=== PATIENT | female | born 1960 | race Two or more races ===

== ENCOUNTER → 2024-08-04 | Outpatient (CLI) | payer BC, SELFPAY ==
--- NOTE | 2024-08-04 15:07 | XR_ITS ---
Examination: Retroperitoneal ultrasound, complete Technique: Multiple high resolution grayscale images of the retroperitoneum obtained, including kidneys and bladder. Exam date and time:August 04, 2024 1515 hrs. Indications: Painful urination hematuria beginning one week ago, diagnosis right renal colic Findings: Right kidney 11.3 x 3.9 x 6.1 minute cortex 1.6 cm 11 mm midpole cyst Left kidney 11.3 x 5.8 x 6.0 cm cortex 1.6 cm No renal calculi or hydronephrosis No bladder mass or bladder calculi Bladder prevoid volume 257 cc postvoid volume 11 cc Impression: No renal calculi or hydronephrosis
== END | disposition home or self-care (01) ==
LOC: SDIM 14:46
PROVIDERS: PCP Internal Medicine; Referring Provider Internal Medicine; Visit Provider Internal Medicine
DX: N23 Unspecified renal colic (principal)
CPT/HCPCS: 76770

== ENCOUNTER → 2024-11-22 | Outpatient (CLI) | payer BC, SELFPAY ==
[2024-11-22 09:04] LABS: Albumin, Serum 4.2 gm/dL (3.4-4.8); Anion Gap 8 (7-16); BUN/Creatinine Ratio 11 Ratio (12-20); Blood Urea Nitrogen 9 mg/dL (9-23); Calcium 9.1 mg/dL (8.3-10.6); Calcium (Corrected) 9.1 mg/dL (8.5-10.1); Carbon Dioxide 28.1 mMol/L (20.0-31.0); Chloride 107 mMol/L (98-107); Creatinine (Component) 0.8 mg/dL (0.6-1.3); Glucose 113 mg/dL (74-106); Osmolality,Calculated 284 (275-295); Phosphorous 3.7 mg/dL (2.4-5.1); Sodium 143 mMol/L (136-145); Thyroid Stimulating Hormone 5.85 uIU/mL (0.55-4.78); eGFR > 60 See Note
== END | disposition home or self-care (01) ==
PROVIDERS: PCP Internal Medicine; Referring Provider Internal Medicine; Visit Provider Internal Medicine
DX: I10 Essential (primary) hypertension (principal); E03.9 Hypothyroidism, unspecified
CPT/HCPCS: 36415; 80069; 84443

== ENCOUNTER 2025-02-23 06:50 | Day surgery (SDC) | payer BC, SELFPAY ==
--- NOTE | 2025-02-20 11:57 | EKG_ITS ---
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
[2025-02-20 12:03] VITALS: BMI 39.5
[2025-02-20 12:46] LABS: Basophils # (Auto) 0.0 Thou/mm3 (0.0-0.2); Basophils % (Auto) 0 % (0-2.5); Eosinophils # (Auto) 0.4 Thou/mm3 (0.0-0.5); Eosinophils % (Auto) 4 % (0-10); Hematocrit 44.9 % (36.0-46.0); Hemoglobin 15.1 g/dL (12.0-16.0); Immature Granulocytes Auto 0.04 Thou/mm3 (0.00-0.00); Lymphocytes # (Auto) 3.0 Thou/mm3 (1.0-4.8); Lymphocytes % (Auto) 28 % (10-50); Mean Corpuscular HGB Conc 33.6 g/dl (31.0-37.0); Mean Corpuscular Hemoglobin 29.6 pg (25.0-35.0); Mean Corpuscular Volume 88 fL (80-100); Monocytes # (Auto) 0.7 Thou/mm3 (0.0-0.8); Monocytes % (Auto) 7 % (0-12); Neutrophils # (Auto) 6.5 Thou/mm3 (1.8-7.7); Neutrophils % (Auto) 61 % (37-80); Nucleated Red Blood Cell # 0.00 Thou/mm3 (0.00-0.00); Nucleated Red Blood Cell % 0 /100 WBC (0); Platelet Count 243 Thou/mm3 (140-440); RDW Standard Deviation 46.0 fL (36.4-46.3); Red Blood Count 5.10 Miln/mm3 (4.00-5.20); White Blood Count 10.6 Thou/mm3 (3.6-11.0)
[2025-02-20 13:08] LABS: Alanine Aminotransferase 14 U/L (10-49); Albumin, Serum 4.4 gm/dL (3.4-4.8); Albumin/Globulin Ratio 1.8 (1.2-2.2); Alkaline Phosphatase 82 U/L (46-116); Anion Gap 9 (7-16); Aspartate Amino Transferase 18 U/L (0-34); BUN/Creatinine Ratio 13 Ratio (12-20); Bilirubin,Total 0.8 mg/dL (0.3-1.2); Blood Urea Nitrogen 9 mg/dL (9-23); Calcium 9.6 mg/dL (8.3-10.6); Calcium (Corrected) 9.6 mg/dL (8.5-10.1); Carbon Dioxide 25.4 mMol/L (20.0-31.0); Chloride 109 mMol/L (98-107); Creatinine (Component) 0.7 mg/dL (0.6-1.3); Estimated Creatinine Clearance 101.7 mL/min (>60); Globulin 2.4 gm/dL (2.3-3.5); Glucose 104 mg/dL (74-106); Osmolality,Calculated 283 (275-295); Potassium 3.7 mMol/L (3.4-5.1); Sodium 143 mMol/L (136-145); Total Protein 6.8 gm/dL (5.7-8.2); eGFR > 60 See Note
[2025-02-23] VITALS (7 sets, daily range): BP systolic 103–145; BP diastolic 60–86; PULSE 69–84; RESP 16–20; TEMP 36.3–36.6; O2SAT 95–98; BMI 39.3
--- NOTE | 2025-02-23 10:00 | SUR.PHASEI ---
1000 patient arrived to recovery resting comfortably in [facility], drowsy and talking with staff, on oxygen 4L via oxy mask, breathing unlabored, vital signs stable, denies pain, dressing intact to posterior head; sutures, antibiotic ointment, no bleeding noted, denies nausea, report received from Damon Miller CRNA and Gabe KAUR
--- NOTE | 2025-02-23 10:25 | ESOP_ITS ---
Date of Procedure 02/23/25 Pre Op Diagnosis Large left posterior scalp mass Post Op Diagnosis Large subcutaneous soft tissue mass of left posterior scalp Procedure Excision of subcutaneous soft tissue mass from left posterior scalp Findings An approximately 8 cm lipomatous mass over left posterior scalp Procedure Description Patient brought into the operating room in supine position. After administration of general tracheal anesthesia, patient was placed in right lateral decubitus position. Her left posterior scalp was shaved then prepped and draped in standard surgical manner. After administration of local anesthesia an approximately 10 cm elliptical incision was made and dissection was deepened into soft tissue. The underlying soft tissue mass was circumferentially excised. The mass was measuring to be approximately 8 cm in diameter, lipomatous in nature. The wound was washed and irrigated and hemostasis achieved using electrocautery. Subcutaneous tissue closed with interrupted sutures using 2-0 Vicryl and incision was closed with simple and interrupted sutures using 2-0 Prolene. Antibiotic ointment applied. Patient tolerated procedure well. She was placed in supine position and extubated. She was breathing spontaneously and without difficulty and was transferred to postanesthesia care in stable condition. Instruments, needles and sponge counts were reported to be correct x 2. Anesthesia GETA and local Pathology / specimen Other (Left posterior scalp mass) Estimated Blood Loss 10 Condition Stable Disposition PACU Surgeon Byron Edward MD Surgical Staff Operation Date: 02/23/25 09:00 Case Staff DENTAL CLAIMS PROCESSOR: Ray Hernandez RN First Assistant: Andie Mccabe
--- NOTE | 2025-02-23 11:00 | SUR.PHASEII ---
1100 patient meets discharge criteria from recovery, awake and alert, breathing unlabored, vital signs stable, denies pain, dressing intact; no bleeding noted, drinking fluids, denies nausea, assisted with dressing into her clothing by staff, discharge instructions given to patient and patients sister, sister signed discharge instructions. Patient given all her belongings prior to discharge, transported via wheelchair and left in a private vehicle.
== END 2025-02-23 11:00 | disposition home or self-care (01) ==
PROVIDERS: Anesthesiology; PCP Internal Medicine; Referring Provider Surgery; Visit Provider Surgery
PROC: (CPT 21012; principal; 2025-02-23 08:45)
DX: D17.0 Benign lipomatous neoplasm of skin and subcutaneous tissue of head, face and neck (principal); Z01.810 Encounter for preprocedural cardiovascular examination
CPT/HCPCS: 21012; 36415; 80053; 85025; 93005; A4649; J1100; J2405; J2704; J3010

== ENCOUNTER → 2025-05-03 | Outpatient (CLI) | payer BC, SELFPAY ==
[2025-05-03 08:04] LABS: Collection Type, Urine Clean Catch
[2025-05-03 08:39] LABS: Basophils # (Auto) 0.0 Thou/mm3 (0.0-0.2); Basophils % (Auto) 0 % (0-2.5); Eosinophils # (Auto) 0.4 Thou/mm3 (0.0-0.5); Eosinophils % (Auto) 5 % (0-10); Hematocrit 45.1 % (36.0-46.0); Hemoglobin 14.8 g/dL (12.0-16.0); Immature Granulocytes Auto 0.03 Thou/mm3 (0.00-0.00); Lymphocytes # (Auto) 2.3 Thou/mm3 (1.0-4.8); Lymphocytes % (Auto) 28 % (10-50); Mean Corpuscular HGB Conc 32.8 g/dl (31.0-37.0); Mean Corpuscular Hemoglobin 29.4 pg (25.0-35.0); Mean Corpuscular Volume 90 fL (80-100); Monocytes # (Auto) 0.6 Thou/mm3 (0.0-0.8); Monocytes % (Auto) 7 % (0-12); Neutrophils # (Auto) 4.8 Thou/mm3 (1.8-7.7); Neutrophils % (Auto) 59 % (37-80); Nucleated Red Blood Cell # 0.00 Thou/mm3 (0.00-0.00); Nucleated Red Blood Cell % 0 /100 WBC (0); Platelet Count 226 Thou/mm3 (140-440); RDW Standard Deviation 45.6 fL (36.4-46.3); Red Blood Count 5.04 Miln/mm3 (4.00-5.20); White Blood Count 8.1 Thou/mm3 (3.6-11.0)
[2025-05-03 08:44] LABS: Glucose Estimated Average 120 mg/dL (80-131); Hemoglobin A1C 5.8 % Hgb (4.8-6.0)
[2025-05-03 08:50] LABS: Alanine Aminotransferase 18 U/L (10-49); Albumin, Serum 4.4 gm/dL (3.4-4.8); Albumin/Globulin Ratio 1.9 (1.2-2.2); Alkaline Phosphatase 70 U/L (46-116); Anion Gap 8 (7-16); Aspartate Amino Transferase 18 U/L (0-34); BUN/Creatinine Ratio 13 Ratio (12-20); Bilirubin,Total 0.7 mg/dL (0.3-1.2); Blood Urea Nitrogen 10 mg/dL (9-23); Calcium 9.1 mg/dL (8.3-10.6); Calcium (Corrected) 9.1 mg/dL (8.5-10.1); Carbon Dioxide 28.4 mMol/L (20.0-31.0); Cardiac Risk Estimate 4.5 RATIO (3.7-5.6); Chloride 109 mMol/L (98-107); Cholesterol 175 mg/dL (132-200); Creatinine (Component) 0.8 mg/dL (0.6-1.3); Globulin 2.3 gm/dL (2.3-3.5); Glucose 125 mg/dL (74-106); HDL Cholesterol 39 mg/dL (40-60); LDL Cholesterol,Calculated 105 mg/dL (0-130); Osmolality,Calculated 288 (275-295); Potassium 4.1 mMol/L (3.4-5.1); Sodium 145 mMol/L (136-145); Thyroid Stimulating Hormone 5.20 uIU/mL (0.55-4.78); Total Protein 6.7 gm/dL (5.7-8.2); Triglycerides 153 mg/dL (30-150); Uric Acid 5.2 mg/dL (3.1-7.8); eGFR > 60 See Note
[2025-05-03 08:55] LABS: Vitamin B12 269 pg/mL (211-911); Vitamin D 25 Hydroxy Total 31.6 ng/mL (7.3-40.2)
[2025-05-03 09:08] LABS: Bacteria,Urine Rare; Bilirubin,Urine Negative (Negative); Blood,Urine Trace (Negative); Color,Urine Yellow (Lt Yel-Yel); Glucose, Urine Negative (Negative); Ketones,Urine Negative (Negative); Leukocyte Esterase,Urine Positive (Negative); Nitrite,Urine Negative (Negative); PH,Urine 5.5 (5.0-7.0); Protein,Urine Negative (Neg - Trace); RBC,Urine 3 /hpf (0-3); Specific Gravity,Urine 1.023 (1.001-1.035); Squamous Epithelial Cell,Urine 18 /hpf (0-5); Urobilinogen,Urine Negative mg/dL (0.0-1.0); WBC,Urine 2 /hpf (0-5)
[2025-05-03 09:25] LABS: Clarity,Urine Hazy (Clear/Hazy)
== END | disposition home or self-care (01) ==
LOC: COPL 07:12
PROVIDERS: PCP Internal Medicine; Referring Provider Internal Medicine; Visit Provider Internal Medicine
DX: Z00.00 Encounter for general adult medical examination without abnormal findings (principal); I10 Essential (primary) hypertension
CPT/HCPCS: 36415; 80053; 80061; 81001; 82306; 82607; 83036; 84443; 84550; 85025